=== PATIENT | female | born 1960 | race African-American/Black ===

== ENCOUNTER 2021-11-18 18:27 | Observation (INO) ==
[2021-11-19] MEDS ORDERED: Naloxone 0.4 MG/ML INJ IVP PRN (00:27)
[2021-11-19] MEDS ORDERED: Ondansetron 4 MG/2 ML VIAL IVP PRN (00:27)
[2021-11-19] MEDS ORDERED: Nitroglycerin 0.4 MG TAB.SUBL SL PRN (00:38)
[2021-11-19 03:08] LABS: Hematocrit 37.6 % (35.3-44.9); Hemoglobin 12.3 g/dL (11.5-15.4); Mean Corpuscular HGB Conc 32.7 g/dL (31.6-35.5); Mean Corpuscular Hemoglobin 30.9 pg (28.0-33.3); Mean Corpuscular Volume 94.5 fL (83.0-100.0); Mean Platelet Volume 10.8 fL (9.4-12.4); Platelet Count 301 K/mcL (140-400); Red Blood Count 3.98 M/mcL (3.82-4.97); Red Cell Distribution Width 14.6 % (11.5-14.5); White Blood Count 5.4 K/mcL (4.3-11.1)
[2021-11-19 03:15] LABS: INR 3.2; Prothrombin Time 35.5 Seconds (9.4-12.1)
[2021-11-19 03:18] LABS: Activated Partial Thrombo Time 54.9 Seconds (26.0-36.0)
[2021-11-19 03:28] LABS: Calcium 9.4 mg/dL (8.6-10.3)
[2021-11-19 03:33] LABS: Troponin I 0.06 ng/mL (< 0.04)
[2021-11-19] MEDS: Acetaminophen 325 MG TABLET PO PRN ×2 (08:37→20:40)
[2021-11-19] MEDS: Aspirin 81 MG TAB.CHEW PO SCH (08:47)
[2021-11-19 09:19] LABS: Chol/HDL Ratio 4.9 (0-4.9)
[2021-11-19 09:32] LABS: Troponin I 0.08 ng/mL (< 0.04)
[2021-11-19 12:21] LABS: Estimated Average Glucose 108 mg/dl; Hemoglobin A1C 5.4 %
[2021-11-19] MEDS: Albumin 25% 25gram/100mL 25 GM/100 ML IV.SOLN IVPB SCH ×4 (13:05→21:09)
[2021-11-19] MEDS ORDERED: *HR* Warfarin 2.5 MG TABLET PO ONE (18:00)
[2021-11-19] MEDS ORDERED: Warfarin perPT PO PRN (18:00)
[2021-11-19] MEDS: Metoprolol XL (24 HR) Succ 25 MG TAB.ER.24H PO SCH (20:40)
[2021-11-20 02:26] LABS: Basophils # 0.1 K/mcL (0.0-0.2); Basophils % 1.2 %; Eosinophils # 0.2 K/mcL (0.0-0.6); Eosinophils % 3.9 %; Hematocrit 35.2 % (35.3-44.9); Hemoglobin 11.3 g/dL (11.5-15.4); Immature Granulocytes % 0.6 % (0-4); Lymphocytes # 1.8 K/mcL (0.6-4.6); Lymphocytes % 35.5 %; Mean Corpuscular HGB Conc 32.1 g/dL (31.6-35.5); Mean Corpuscular Hemoglobin 30.5 pg (28.0-33.3); Mean Corpuscular Volume 95.1 fL (83.0-100.0); Mean Platelet Volume 10.7 fL (9.4-12.4); Monocytes # 0.5 K/mcL (0.0-1.3); Neutrophils # 2.4 K/mcL (1.6-8.9); Platelet Count 274 K/mcL (140-400); Red Cell Distribution Width 14.5 % (11.5-14.5); Segmented Neutrophils % 47.8 %; White Blood Count 4.9 K/mcL (4.3-11.1)
[2021-11-20 02:35] LABS: INR 2.4; Prothrombin Time 26.3 Seconds (9.4-12.1)
[2021-11-20 02:46] LABS: Calcium 9.5 mg/dL (8.6-10.3); Phosphorous 4.1 mg/dL (2.7-4.5); Potassium 4.5 mEq/L (3.5-5.1)
[2021-11-20] MEDS: Albumin 25% 25gram/100mL 25 GM/100 ML IV.SOLN IVPB SCH (05:25)
[2021-11-20] MEDS: Aspirin 81 MG TAB.CHEW PO SCH (08:10)
[2021-11-20] MEDS: Metoprolol XL (24 HR) Succ 25 MG TAB.ER.24H PO SCH (08:10)
[2021-11-20] MEDS ORDERED: *HR* Amiodarone 200 MG TABLET PO SCH (09:00)
[2021-11-20] MEDS ORDERED: BuPROPion XL (24 HR) 150 MG TABLET PO SCH (09:00)
[2021-11-20 11:09] VITALS: BP 115/74; PULSE 77; TEMP 97.7; O2SAT 94
[2021-11-20] MEDS ORDERED: *HR* Warfarin 5 MG TABLET PO ONE (18:00)
[2021-11-20] MEDS ORDERED: Famotidine 20 MG TABLET PO SCH (21:00)
== END 2021-11-20 13:48 | disposition home or self-care (01) ==
LOC: 3BNU → SUATTDRO 23:47
PROVIDERS: ADMIT Internal Medicine; ATTEND Internal Medicine

== ENCOUNTER 2021-11-29 17:28 | Inpatient (IN) ==
[2021-11-29] MEDS ORDERED: Naloxone 0.4 MG/ML INJ IVP PRN (19:41)
[2021-11-29] MEDS ORDERED: Melatonin 3 MG TABLET PO PRN (19:41)
[2021-11-29] MEDS ORDERED: Ondansetron 4 MG/2 ML VIAL IVP PRN (19:41)
[2021-11-29] MEDS ORDERED: *HR* Dextrose 50 % in Water (Syg) 50 ML SYRINGE IVP PRN (20:44)
[2021-11-29] MEDS ORDERED: D5% in Water 1,000 ML IVC PRN (20:44)
[2021-11-29] MEDS ORDERED: Dextrose Gel 15 GM/37.5 ML TUBE PO PRN ×2 (20:44)
[2021-11-29] MEDS ORDERED: Furosemide 40 MG/4 ML VIAL IVP ONE (23:46)
[2021-11-30 04:07] LABS: White Blood Count 7.6 K/mcL (4.3-11.1)
[2021-11-30 04:08] LABS: Basophils # 0.1 K/mcL (0.0-0.2); Basophils % 0.9 %; Eosinophils # 0.1 K/mcL (0.0-0.6); Eosinophils % 1.9 %; Hematocrit 37.5 % (35.3-44.9); Hemoglobin 12.1 g/dL (11.5-15.4); Immature Granulocytes % 0.5 % (0-4); Lymphocytes # 1.5 K/mcL (0.6-4.6); Lymphocytes % 19.7 %; Mean Corpuscular HGB Conc 32.3 g/dL (31.6-35.5); Mean Corpuscular Hemoglobin 30.6 pg (28.0-33.3); Mean Corpuscular Volume 94.7 fL (83.0-100.0); Mean Platelet Volume 11.3 fL (9.4-12.4); Monocytes # 0.7 K/mcL (0.0-1.3); Monocytes % 9.4 %; Neutrophils # 5.1 K/mcL (1.6-8.9); Nucleated Red Blood Cells 0.4 /100 WBC (0); Platelet Count 319 K/mcL (140-400); Red Blood Count 3.96 M/mcL (3.82-4.97); Red Cell Distribution Width 14.2 % (11.5-14.5); Segmented Neutrophils % 67.6 %
[2021-11-30 04:29] LABS: BUN/Creatinine Ratio 16 (6-26); Blood Urea Nitrogen 20 mg/dL (8-23); Calcium 9.3 mg/dL (8.6-10.3); Carbon Dioxide 25 mEq/L (23-29); Chloride 106 mEq/L (98-107); Glucose 104 mg/dL (70-105); Osmolality,Calculated 293 (280-300); Potassium 3.6 mEq/L (3.5-5.1); Sodium 140 mEq/L (136-145); Troponin I < 0.03 ng/mL (< 0.04)
[2021-11-30] MEDS ORDERED: Regadenoson 0.4 MG/5 ML SYRINGE IVP ONE (06:24)
[2021-11-30] MEDS: Acetaminophen 325 MG TABLET PO PRN (09:09)
[2021-11-30] MEDS: Furosemide 20 MG/2 ML VIAL IVP SCH ×2 (09:09→21:22)
[2021-11-30 13:03] LABS: INR 1.8; Prothrombin Time 19.9 Seconds (9.4-12.1)
[2021-11-30] MEDS ORDERED: *HR* Heparin 5,000 UNIT/ML VIAL IVP ONE (13:08)
[2021-11-30] MEDS ORDERED: *HR* Heparin 5,000 UNIT/ML VIAL IVP PRN ×2 (13:08)
[2021-11-30] MEDS: Metoprolol XL (24 HR) Succ 25 MG TAB.ER.24H PO SCH ×2 (13:43→21:22)
[2021-11-30] MEDS: Aspirin Enteric Coated 81 MG Tablet PO SCH (13:43)
[2021-11-30] MEDS: *HR* Amiodarone 200 MG TABLET PO SCH (13:43)
[2021-11-30] MEDS: BuPROPion XL (24 HR) 150 MG TABLET PO SCH (13:43)
[2021-11-30] MEDS: Heparin 25,000UNIT/250ML 1/2NS 25,000 UNIT/250 ML IV.SOLN IVC SCH (13:56)
[2021-11-30] MEDS ORDERED: Warfarin perPT PO PRN (18:00)
[2021-12-01 04:55] LABS: Basophils # 0.1 K/mcL (0.0-0.2); Basophils % 1.4 %; Eosinophils # 0.2 K/mcL (0.0-0.6); Hematocrit 37.2 % (35.3-44.9); Hemoglobin 12.1 g/dL (11.5-15.4); Immature Granulocytes % 0.7 % (0-4); Lymphocytes # 1.6 K/mcL (0.6-4.6); Lymphocytes % 29.3 %; Mean Corpuscular HGB Conc 32.5 g/dL (31.6-35.5); Mean Corpuscular Hemoglobin 30.8 pg (28.0-33.3); Mean Corpuscular Volume 94.7 fL (83.0-100.0); Mean Platelet Volume 11.2 fL (9.4-12.4); Monocytes # 0.6 K/mcL (0.0-1.3); Monocytes % 11.1 %; Platelet Count 305 K/mcL (140-400); Red Blood Count 3.93 M/mcL (3.82-4.97); Red Cell Distribution Width 14.1 % (11.5-14.5); Segmented Neutrophils % 54.5 %; White Blood Count 5.6 K/mcL (4.3-11.1)
[2021-12-01 05:03] LABS: INR 1.6; Prothrombin Time 18.3 Seconds (9.4-12.1)
[2021-12-01 05:06] LABS: Calcium 9.1 mg/dL (8.6-10.3); Magnesium 1.9 mg/dL (1.6-2.6); Potassium 3.5 mEq/L (3.5-5.1)
[2021-12-01] MEDS: BuPROPion XL (24 HR) 150 MG TABLET PO SCH (09:24)
[2021-12-01] MEDS: *HR* Amiodarone 200 MG TABLET PO SCH (09:24)
[2021-12-01] MEDS: Metoprolol XL (24 HR) Succ 25 MG TAB.ER.24H PO SCH ×2 (09:24→20:54)
[2021-12-01] MEDS: Aspirin Enteric Coated 81 MG Tablet PO SCH (09:24)
[2021-12-01] MEDS: Heparin 25,000UNIT/250ML 1/2NS 25,000 UNIT/250 ML IV.SOLN IVC SCH (09:24)
[2021-12-01] MEDS: Furosemide 20 MG/2 ML VIAL IVP SCH ×2 (09:24→20:54)
[2021-12-01] MEDS: Acetaminophen 325 MG TABLET PO PRN (13:39)
[2021-12-01] MEDS ORDERED: *HR* Midazolam HCl 2 MG/2 ML VIAL ONE (14:19)
[2021-12-01] MEDS ORDERED: *HR* Heparin 10,000 UNIT/10 ML VIAL ONE ×2 (14:19→15:06)
[2021-12-01] MEDS ORDERED: Heparin 1,000 UNITS/500 mL 500 ML ONE (14:19)
[2021-12-01] MEDS ORDERED: *HR* FentaNYL (PF) 100 MCG/2 ML VIAL ONE (14:19)
[2021-12-01] MEDS ORDERED: 0.9 % Sodium Chloride 1,000 ML ONE (14:20)
[2021-12-01] MEDS ORDERED: Iopamidol - 370 200 ML INFUS..BTL ONE (14:20)
[2021-12-01] MEDS ORDERED: Nitroglycerin 1,000 MCG/5 ML VIAL IV ONE (14:20)
[2021-12-02 01:28] LABS: Hematocrit 38.6 % (35.3-44.9); Hemoglobin 12.6 g/dL (11.5-15.4)
[2021-12-02 01:37] LABS: INR 1.4; Prothrombin Time 15.8 Seconds (9.4-12.1)
[2021-12-02 01:52] LABS: Albumin 4.4 g/dL (3.5-5.7); Albumin/Globulin Ratio 1.8 (1.1-2.2); Calcium 9.1 mg/dL (8.6-10.3); Globulin 2.5 g/dL (2.4-3.5); Potassium 3.3 mEq/L (3.5-5.1); Total Protein 6.9 g/dL (6.4-8.9)
[2021-12-02] MEDS ORDERED: Potassium Chloride Elixir 20 MEQ/15 ML UDC PO ONE (07:44)
[2021-12-02] MEDS: *HR* Amiodarone 200 MG TABLET PO SCH (08:02)
[2021-12-02] MEDS: BuPROPion XL (24 HR) 150 MG TABLET PO SCH (08:02)
[2021-12-02] MEDS: Metoprolol XL (24 HR) Succ 25 MG TAB.ER.24H PO SCH ×2 (08:02→20:07)
[2021-12-02] MEDS: Furosemide 20 MG/2 ML VIAL IVP SCH ×2 (08:03→20:06)
[2021-12-02] MEDS: Heparin 25,000UNIT/250ML 1/2NS 25,000 UNIT/250 ML IV.SOLN IVC SCH (08:58)
[2021-12-02] MEDS: *HR* Enoxaparin 100 MG/ML SYRINGE SQ SCH (17:06)
[2021-12-02] MEDS ORDERED: *HR* Warfarin 2.5 MG TABLET PO ONE (18:00)
[2021-12-02] MEDS ORDERED: Warfarin perPT PO PRN (18:00)
[2021-12-03 04:32] LABS: Albumin 4.3 g/dL (3.5-5.7); Albumin/Globulin Ratio 1.6 (1.1-2.2); Bilirubin,Total 0.9 mg/dL (0.3-1.0); Calcium 9.1 mg/dL (8.6-10.3); Globulin 2.7 g/dL (2.4-3.5); Potassium 3.7 mEq/L (3.5-5.1)
[2021-12-03 04:34] LABS: INR 1.4; Prothrombin Time 15.1 Seconds (9.4-12.1)
[2021-12-03] MEDS: *HR* Enoxaparin 100 MG/ML SYRINGE SQ SCH ×2 (05:44→17:16)
[2021-12-03] MEDS: Furosemide 20 MG/2 ML VIAL IVP SCH (08:09)
[2021-12-03] MEDS: *HR* Amiodarone 200 MG TABLET PO SCH (08:10)
[2021-12-03] MEDS: BuPROPion XL (24 HR) 150 MG TABLET PO SCH (08:10)
[2021-12-03] MEDS: Metoprolol XL (24 HR) Succ 25 MG TAB.ER.24H PO SCH ×2 (08:10→20:53)
[2021-12-03] MEDS: Albumin 25% 25gram/100mL 25 GM/100 ML IV.SOLN IVPB SCH ×2 (09:25→20:50)
[2021-12-03] MEDS: Furosemide 20 MG TABLET PO SCH (17:16)
[2021-12-03] MEDS ORDERED: *HR* Warfarin 2.5 MG TABLET PO ONE (18:00)
[2021-12-04 03:23] LABS: INR 1.3; Prothrombin Time 14.7 Seconds (9.4-12.1)
[2021-12-04 03:44] LABS: Calcium 9.7 mg/dL (8.6-10.3); Phosphorous 3.8 mg/dL (2.7-4.5); Potassium 3.9 mEq/L (3.5-5.1)
[2021-12-04] MEDS: *HR* Enoxaparin 100 MG/ML SYRINGE SQ SCH (05:29)
[2021-12-04] MEDS: Furosemide 20 MG TABLET PO SCH (08:46)
[2021-12-04] MEDS: Metoprolol XL (24 HR) Succ 25 MG TAB.ER.24H PO SCH ×2 (08:51→20:35)
[2021-12-04] MEDS: BuPROPion XL (24 HR) 150 MG TABLET PO SCH (08:51)
[2021-12-04] MEDS: *HR* Amiodarone 200 MG TABLET PO SCH (08:52)
[2021-12-04] MEDS: Albumin 25% 25gram/100mL 25 GM/100 ML IV.SOLN IVPB SCH ×2 (08:52→20:37)
[2021-12-04] MEDS ORDERED: *HR* Warfarin 5 MG TABLET PO ONE (18:00)
[2021-12-05 05:06] LABS: INR 1.2; Prothrombin Time 13.9 Seconds (9.4-12.1)
[2021-12-05] MEDS ORDERED: *HR* Enoxaparin 100 MG/ML SYRINGE SQ SCH (06:00)
[2021-12-05 07:42] VITALS: BP 122/71; PULSE 82; TEMP 97.8; O2SAT 94
[2021-12-05] MEDS: Metoprolol XL (24 HR) Succ 25 MG TAB.ER.24H PO SCH (08:15)
[2021-12-05] MEDS: Albumin 25% 25gram/100mL 25 GM/100 ML IV.SOLN IVPB SCH (08:15)
[2021-12-05] MEDS: *HR* Amiodarone 200 MG TABLET PO SCH (08:15)
[2021-12-05] MEDS: BuPROPion XL (24 HR) 150 MG TABLET PO SCH (08:15)
[2021-12-05 09:49] LABS: Calcium 10.1 mg/dL (8.6-10.3); Magnesium 1.9 mg/dL (1.6-2.6); Phosphorous 3.2 mg/dL (2.7-4.5); Potassium 3.8 mEq/L (3.5-5.1)
[2021-12-05] MEDS ORDERED: *HR* Warfarin 7.5 MG TABLET PO ONE (18:00)
== END 2021-12-05 13:51 | disposition home or self-care (01) | DRG 246 ==
LOC: 3BNU → SUATTDRO 19:13 → 3BNU 11-30 17:08 → SUATTDRO 12-02 16:25
PROVIDERS: ADMIT Internal Medicine; ATTEND Internal Medicine